=== PATIENT | male | born 1945 | race Caucasian/White ===

== ENCOUNTER 2021-10-02 08:39 | Outpatient (CLI) | payer OTHER, SELFPAY ==
--- NOTE | 2021-10-02 09:00 | CT_ITS ---
Final Report Patient: PETEY CASTANEDA Facility:?[facility] Patient ID:?[id number] Site Patient ID:?[id number]. Site :?[id number] Study:?CT Chest w/o Contrast-10/02/2021 9:01:50 AM Ordering Physician:Carlita Lucas Final Report: INDICATION: Pulmonary hypertension. TECHNIQUE: CT chest without contrast. COMPARISON: CT chest 07/06/2021. FINDINGS: Lungs and pleura: Centrilobular emphysema. Bilateral bronchial wall thickening. Improved mucous impaction in the bilateral lower lobes and left upper lobe. Calcified granuloma in the right lower lobe. 1.9 cm nodular density in the posterior left upper lobe decreased in size compared to CT 07/06/2021 (series 4, image 27) likely area of scarring. New 11 mm pulmonary nodule in the right upper lobe (Series 4, image 17). Heart and vasculature: Heart size is normal. Thoracic aorta and pulmonary artery are normal in caliber.Coronary and aortic atherosclerotic calcification. Lymph nodes/mediastinum: Enlarged mediastinal and hilar lymph nodes with calcified mediastinal and hilar lymph nodes similar to prior. Chest wall: No masses. Upper abdomen: No significant findings. Small hiatal hernia. Bones: Old nonunited left rib fractures. Vertebral plana deformity of the T6 vertebral body with compression fracture of the T5 vertebral body with slight increased height loss compared to 07/06/2021. IMPRESSION: 1. Severe centrilobular emphysema with bilateral bronchial wall thickening. Improved bilateral lower lobe and left upper lobe mucous impaction compared to prior exam. Nodular area in the left upper lobe improved compared to prior CT likely residual scarring. 2. New 12 mm pulmonary nodule in right upper lobe. Recommend short interval follow-up and/or PET-CT for further evaluation. 3. Extensive coronary and aortic atherosclerosis. 4. Enlarged mediastinal and hilar lymph nodes with calcified nodes likely due to prior granulomas disease although indeterminate. 5. Severe T5 and T6 compression fractures with interval height loss of T5 compared to prior exam. Please note that all CT scans at this facility use dose modulation, iterative reconstruction, and/or weight-based dosing when appropriate to reduce radiation dose to as low as reasonably achievable. Dictated by Yonny Pastor MD @ 10/02/2021 10:31:04 AM (Electronic Signature)
== END 2021-10-02 08:40 | disposition home or self-care (01) ==
LOC: CT 08:39
PROVIDERS: PCP Family Medicine; Visit Provider Internal Medicine Pulmonary Disease
DX: I27.20 Pulmonary hypertension, unspecified (principal); R91.1 Solitary pulmonary nodule; R59.9 Enlarged lymph nodes, unspecified; M48.54XA Collapsed vertebra, not elsewhere classified, thoracic region, initial encounter for fracture; J44.9 Chronic obstructive pulmonary disease, unspecified; J84.10 Pulmonary fibrosis, unspecified; R06.00 Dyspnea, unspecified; R09.02 Hypoxemia
CPT/HCPCS: 71250

== ENCOUNTER 2021-11-23 17:36 | Outpatient (CLI) | payer OTHER, SELFPAY | END 2021-11-23 17:37 | disposition home or self-care (01) | LOC: AMB 12-01 19:33 | PROVIDERS: PCP Family Medicine; Visit Provider Family Medicine | DX: R06.09 Other forms of dyspnea (principal) | CPT/HCPCS: A0425; A0427 ==

== ENCOUNTER 2021-11-23 18:09 | Emergency (ER) | payer OTHER, SELFPAY ==
[2021-11-23] VITALS (7 sets, daily range): BP systolic 126–143; BP diastolic 80–91; PULSE 80–89; RESP 18–43; TEMP 36.9; O2SAT 86–97; BMI 24.0
--- NOTE | 2021-11-23 18:53 | CRLHL7_ITS ---
For Patients: As a result of the Cures Act, medical imaging exams and procedure reports are released immediately into your electronic medical record. You may view this report before your referring provider. If you have questions, please contact your health care provider. Indication: Hypoxia Comparison: Single-view chest July 06, 2021 Technique: PA and lateral views of the chest Findings: There is hyperinflation and chronic interstitial change with diffusely increased interstitial markings which may represent pulmonary fibrotic changes with superimposed pulmonary edema. There is calcified granuloma seen in the visualized lung bases. There is no pneumothorax. The cardiac silhouette is enlarged with a tortuous thoracic aorta. The bony thorax is grossly intact. Impression: Hyperinflation and chronic interstitial changes with diffusely increased interstitial markings likely representing pulmonary fibrotic changes with mild pulmonary vascular congestion. Dictated by Hugh Hull MD @ 11/23/2021 8:08:09 PM (Electronically Signed)
--- NOTE | 2021-11-23 19:01 | ED_ITS ---
HPI - SOB/Dyspnea General Chief Complaint: Shortness of Breath/Dyspnea Stated Complaint: Short of Breath Time Seen by Provider: 11/23/21 18:33 Source: patient, family, EMS and RN notes reviewed Mode of arrival: EMS Limitations: no limitations History of Present Illness HPI Narrative: 76-year-old man presenting to the emergency department accompanied by his daughter with 30 hours of increasing shortness of air. Especially bad over the last hour. He does not describe chest pain. no abdominal pain. There has been no fever. No cough. Daughter notes that with history of pneumonias has not demonstrated these symptoms generally anyway. Underlying history of COPD, CHF with preserved ejection fraction and history of respiratory failure as well as pneumonia. Last admitted to this facility in July of this year. is normally on 3 L of nasal cannula at home this is CPAP at night. Today was just more and more short of breath with oximetry measuring in the 60s with any exertion. Increasing fatigue and weakness. Appears to be at his baseline weight now 172 lb since last admission when he had actually been all the way up at 203 lb. Is seeing a new glove brusher. Daughter notes that followup CT of the chest done in September of this year showed a new upper right lung spot and is pending a PET scan. This September CT showed improved chronic bronchitis. Mr. Gurrola after period of cessation, does continue to smoke. 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 he is vaccinated for COVID. did receive a DuoNeb from EMS. Has taken 3 of his own today. Apparently isn't using so much otherwise. Says that this level of oxygen receiving on arrival is definitely helping. There is a question as to whether not his home oxygen concentrator was malfunctioning; it is being replaced currently. Does have a young lady who lives in the basement having served as a PHYSICAL THERAPY PROFESSOR for his . Accompanied here today by Daughter Anh. The following is from the discharge summary in July Discharge Summary Admission Date and Time: Jul 06, 2021 at 08:43 Discharge Date: Jul 09, 2021 Admitting Physician: Harsh Lewis MD Attending Physician: Harsh Lewis MD; Joanna Whitt MD Primary Care Provider (PCP): Maribeth Avalos DO Discharge Diagnosis 1. Acute hypoxemic respiratory failure secondary to heart failure and COPD. 2. Acute on chronic heart failure with preserved ejection fraction. 3. COPD exacerbation. 4. Possible community-acquired pneumonia. 5. Hypertension. 6. Hyponatremia. 7. Obstructive sleep apnea. 8. Depression and anxiety. 9. Moderate to severe mitral regurgitation. 10. Tobacco dependence and abuse. 11. Chronic back pain. 12. Coronary artery disease. 13. 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 14. Question of atrial fibrillation, although I think this is unlikely. 15. Ascending aortic dilatation of 4.1 cm seen on echocardiogram. further surgeries include herniorrhaphy and bilateral cataract extraction lens reimplantation Related Data Home Medications Medication Instructions Recorded Confirmed albuterol sulfate 2.5 mg/3 mL mg 11/23/21 (0.083 %) solution for nebulization albuterol sulfate 90 mcg/actuation inhalation 11/23/21 aerosol inhaler atorvastatin 40 mg tablet mg 11/23/21 empagliflozin 10 mg tablet mg 11/23/21 (Jardiance) fluoxetine 20 mg capsule mg 11/23/21 fluticasone fur. 100 mcg-umeclid inhalation 11/23/21 62.5 mcg-vilant 25 mcg inhalat.powder (Trelegy Ellipta) furosemide 20 mg tablet mg 11/23/21 furosemide 40 mg tablet mg 11/23/21 losartan 25 mg tablet mg 11/23/21 nitroglycerin 0.4 mg sublingual mg 11/23/21 tablet tramadol 50 mg tablet mg 11/23/21 Allergies Allergy/AdvReac Type Severity Reaction Status Date / Time Penicillins Allergy Verified 11/23/21 18:25 Review of Systems Status of ROS: Reports: 10 or more systems reviewed and unremarkable except as noted in History and below [facility] Social History Smoking Status: Current every day smoker What tobacco products do you use: cigarettes Non-prescribed substance use: denies use Exam Narrative: Exam Narrative: Thin but not unwell appearing other than looks quite tired. Has oximask in place. Not completing full sentences. Moderately labored in his breathing. retracting at upper abdomen. Oropharynx is dry Head is atraumatic. I do not appreciate any JVD. Lungs are generally quite tight with wheeze. Diminished breath sounds generally. Cardiovascular is distant appears to be in regular rhythm and rate. Somewhat barrelled chest. abdomen is soft little tympanitic but nontender. Normoactive bowel sounds. Moving all extremities without difficulty. Is weak though that needs assistance to sit. well perfused peripherally. Has some bruising around his knuckles lower extremities with 1+ edema around his ankles. Const: Vital Signs, click to edit/add: Vital Signs - 24 hr 11/23/21 18:28 11/23/21 18:52 11/23/21 20:00 Temperature 98.5 F Pulse Rate [Right Pulse Oximeter] 86 84 Respiratory Rate 18 27 H 28 H Blood Pressure [Ri ght Upper Arm] 143/88 H 132/84 Pulse Oximetry 96 90 86 L Oxygen Delivery Me thod Room Air Nasal Cannula Nasal Cannula Oxygen Flow Rate 3 3 11/23/21 20:30 11/23/21 21:00 11/23/21 21:30 Temperature Pulse Rate [Right Pulse Oximeter] 89 80 84 Respiratory Rate 21 30 H 43 H Blood Pressure [Ri ght Upper Arm] 142/91 H 126/89 129/87 Pulse Oximetry 89 92 97 Oxygen Delivery Me thod Nasal Cannula Nasal Cannula Nasal Cannula Oxygen Flow Rate 3 5 5 11/23/21 22:00 Temperature Pulse Rate [Right Pulse Oximeter] 82 Respiratory Rate 26 H Blood Pressure [Ri ght Upper Arm] 134/80 Pulse Oximetry 92 Oxygen Delivery Me thod Nasal Cannula Oxygen Flow Rate 7 Documenting provider has reviewed patient's vital signs: yes Course Course Hospital Course: Ordered for Solu-Medrol. and albuterol neb. Continued on OxyMask. Labs pending Reevaluation(s) Reevaluation #1: improved but still desaturates rapidly with even just sitting up in bed. Remains tachypneic and labored. Vital Signs Vital signs: Initial Vital Signs Temperature 98.5 F 11/23/21 18:28 Temperature Source Temporal Artery Scan 11/23/21 18:28 Pulse Rate 86 11/23/21 18:28 Respiratory Rate 18 11/23/21 18:28 Blood Pressure 143/88 H 11/23/21 18:28 Blood Pressure Mean 106 11/23/21 18:28 Blood Pressure Position Supine 11/23/21 18:28 Pulse Oximetry 96 11/23/21 18:28 Oxygen Delivery Method 11/23/21 18:28 Vital Signs Temperature 98.5 F 11/23/21 18:28 Pulse Rate 86 11/23/21 18:28 Respiratory Rate 18 11/23/21 18:28 Blood Pressure 143/88 H 08/19/22 18:28 Pulse Oximetry 96 11/23/21 18:28 Oxygen Delivery Method 11/23/21 18:28 Temperature 98.5 F 11/23/21 18:28 Pulse Rate 82 11/23/21 22:00 Respiratory Rate 26 H 11/23/21 22:00 Blood Pressure 134/80 11/23/21 22:00 Pulse Oximetry 92 11/23/21 22:00 Oxygen Delivery Method 11/23/21 22:00 Oxygen Flow Rate 7 11/23/21 22:00 MDM - SOB/Dyspnea MDM Narrative Medical decision making narrative: Chest x-ray without evidence of pneumonia by my read. Fibrotic changes prominent. mild pulmonary edema. initial VBGs with pH of 7.39 CO2 49 Initial albuterol nebulization may have helped somewhat. Wondering if there may be some mucus plugging contributing. Will repeat albuterol neb and transition to humidified oxygen /bubbler. white count is normal. Last admission was over 17,000. mildly hyponatremic at 131 -consistent with history not convinced this is a CHF exacerbation in part as weights have been stable. D-dimer elevated at 2.9 though in the setting of a CRP of 3.1 We have no beds in this facility. Given weakness and continued desaturation with minor activity will be looking for hospitalization elsewhere. returning to imaging for IV contrasted CT of the chest. IMPRESSION: 1. No evidence of pulmonary embolism. 2. Severe emphysema. Patchy bilateral lower lobe opacities, right greater than left suggests pneumonia. 3. A midsternum fracture is new from 10/02/2021, and age indeterminate. 4. Unchanged enlarged mediastinal lymph nodes, nonspecific. Given Rocephin and azithromycin for potential pneumonia Thankfully able to find a bed with [facility]. Dr. Tuttle accepting. Medical Records Attestation: I reviewed the patient's medical records. Lab Data Attestation: I reviewed the patient's lab results. Labs: Lab Results 11/23/21 11/23/21 11/23/21 Range/Units 18:53 18:53 18:53 WBC 9.74 (4.50-11.00) K/uL RBC 4.38 (4.30-5.90) m/uL Hgb 13.9 (13.5-17.5) gm/dL Hct 41.3 (37.0-53.0) % MCV 94 (80-100) fL MCH 32 (26-34) pg MCHC 34 (32-36) gm/dL RDW Coeff of [place] 14.0 (11.5-15.5) % Plt Count 221 (140-440) K/uL Neut % (Auto) 80.3 H (42.0-72.0) % Lymph % (Auto) 8.9 L (20-44) % [place] % (Auto) 9.2 (0.0-11.0) % Eos % (Auto) 0.4 (0.0-7.0) % Baso % (Auto) 1.0 (0.0-3.0) % Neut # (Auto) 7.80 H (1.7-7.0) K/uL Lymph # (Auto) 0.90 (0.90-2.90) K/uL [place] # (Auto) 0.90 (0.00-0.90) K/UL Eos # (Auto) 0.04 (0.00-0.50) K/uL Baso # (Auto) 0.10 (0.00-0.30) K/uL Abs Immat Gran (auto) 0.02 (0.00-0.30) K/uL D-Dimer Quant (PE/DVT) 2.90 H (0.00-0.50) ug/ml VBG pH (7.32-7.43) VBG pCO2 (40-50) mmHG VBG pO2 (25-47) mmHG VBG HCO3 (21-28) mmol/L Sodium 131 L (135-149) mmol/L Potassium 4.4 (3.6-5.1) mmol/L Chloride 96 (96-114) mmol/L Carbon Dioxide 29 (20-32) mmol/L BUN 17 (7-30) mg/dL Creatinine 0.6 (0.5-1.5) mg/dL Estimated Creat Clear 67.98 Estimated GFR 101 ml/min Glucose 110 (60-115) mg/dL Lactate (0.5-1.9) mmol/L Venous Lactic Acid (Serial Order) Calcium 8.7 (8.4-10.6) mg/dL Troponin I < 0.01 L (0.01-0.04) ng/mL C-Reactive Protein 3.1 H (0.5-1.0) mg/dL NT-Pro-B Natriuret Pep 3200 H (0-450) PG/mL SARS-CoV-2 (PCR) (Negative) POC Troponin I (0.01-0.04) ng/ml 11/23/21 11/23/21 11/23/21 Range/Units 18:53 18:53 18:53 WBC (4.50-11.00) K/uL RBC (4.30-5.90) m/uL Hgb (13.5-17.5) gm/dL Hct (37.0-53.0) % MCV (80-100) fL MCH (26-34) pg MCHC (32-36) gm/dL RDW Coeff of Tyler (11.5-15.5) % Plt Count (140-440) K/uL Neut % (Auto) (42.0-72.0) % Lymph % (Auto) (20-44) % [place] % (Auto) (0.0-11.0) % Eos % (Auto) (0.0-7.0) % Baso % (Auto) (0.0-3.0) % Neut # (Auto) (1.7-7.0) K/uL Lymph # (Auto) (0.90-2.90) K/uL [place] # (Auto) (0.00-0.90) K/UL Eos # (Auto) (0.00-0.50) K/uL Baso # (Auto) (0.00-0.30) K/uL Abs Immat Gran (auto) (0.00-0.30) K/uL D-Dimer Quant (PE/DVT) (0.00-0.50) ug/ml VBG pH 7.387 (7.32-7.43) VBG pCO2 49 (40-50) mmHG VBG pO2 60.6 H (25-47) mmHG VBG HCO3 29 H (21-28) mmol/L Sodium (135-149) mmol/L Potassium (3.6-5.1) mmol/L Chloride (96-114) mmol/L Carbon Dioxide (20-32) mmol/L BUN (7-30) mg/dL Creatinine (0.5-1.5) mg/dL Estimated Creat Clear Estimated GFR ml/min Glucose (60-115) mg/dL Lactate 1.4 (0.5-1.9) mmol/L Venous Lactic Acid (Serial Order) Cancelled Calcium (8.4-10.6) mg/dL Troponin I (0.01-0.04) ng/mL C-Reactive Protein (0.5-1.0) mg/dL NT-Pro-B Natriuret Pep (0-450) PG/mL SARS-CoV-2 (PCR) (Negative) POC Troponin I (0.01-0.04) ng/ml 11/23/21 11/23/21 Range/Units 18:57 19:26 WBC (4.50-11.00) K/uL RBC (4.30-5.90) m/uL Hgb (13.5-17.5) gm/dL Hct (37.0-53.0) % MCV (80-100) fL MCH (26-34) pg MCHC (32-36) gm/dL RDW Coeff of [place] (11.5-15.5) % Plt Count (140-440) K/uL Neut % (Auto) (42.0-72.0) % Lymph % (Auto) (20-44) % [place] % (Auto) (0.0-11.0) % Eos % (Auto) (0.0-7.0) % Baso % (Auto) (0.0-3.0) % Neut # (Auto) (1.7-7.0) K/uL Lymph # (Auto) (0.90-2.90) K/uL [place] # (Auto) (0.00-0.90) K/UL Eos # (Auto) (0.00-0.50) K/uL Baso # (Auto) (0.00-0.30) K/uL Abs Immat Gran (auto) (0.00-0.30) K/uL D-Dimer Quant (PE/DVT) (0.00-0.50) ug/ml VBG pH (7.32-7.43) VBG pCO2 (40-50) mmHG VBG pO2 (25-47) mmHG VBG HCO3 (21-28) mmol/L Sodium (135-149) mmol/L Potassium (3.6-5.1) mmol/L Chloride (96-114) mmol/L Carbon Dioxide (20-32) mmol/L BUN (7-30) mg/dL Creatinine (0.5-1.5) mg/dL Estimated Creat Clear Estimated GFR ml/min Glucose (60-115) mg/dL Lactate (0.5-1.9) mmol/L Venous Lactic Acid (Serial Order) Calcium (8.4-10.6) mg/dL Troponin I (0.01-0.04) ng/mL C-Reactive Protein (0.5-1.0) mg/dL NT-Pro-B Natriuret Pep (0-450) PG/mL SARS-CoV-2 (PCR) Negative SARS-CoV-2 (Negative) POC Troponin I 0.01 (0.01-0.04) ng/ml ECG Data Attestation: I personally reviewed and interpreted this ECG as follows: ( sinus at rate of 85. No ST elevation or depression. No Q-waves. Similar to prior) Discharge Plan Discharge Clinical Impression: Respiratory failure, COPD exacerbation, Pneumonia Patient Disposition: [facility] Discharge Location: [facility]
[2021-11-23 19:27] LABS: HCO3 VBG 29 mmol/L (21-28); PCO2 VBG 49 mmHG (40-50); PO2 VBG 60.6 mmHG (25-47); pH VBG 7.387 (7.32-7.43)
[2021-11-23 19:32] LABS: Troponin, Point-of-Care* 0.01 ng/ml (0.01-0.04)
--- NOTE | 2021-11-23 19:33 | PC.NURSE ---
Per Dr. Meek, goal O2 90%. Patient is currently on 3L NC satting 93% which is patient's baseline.
[2021-11-23 19:43] LABS: Chloride* 96 mmol/L (96-114); Potassium* 4.4 mmol/L (3.6-5.1); Sodium* 131 mmol/L (135-149)
[2021-11-23] MEDS: ALBUTEROL SULFATE 2.5 MG/3 ML VIAL.NEB NEB ×2 (19:44→21:01)
[2021-11-23] MEDS: METHYLPREDNISOLONE SOD SUCC 62.5 MG/ML (125) 93.75 MG IVP (19:44)
[2021-11-23 19:46] LABS: Creatinine* 0.6 mg/dL (0.5-1.5); Est. Creatinine Clearance* 67.98; Estimated Glomerular Filt Rate 101 ml/min
[2021-11-23 19:47] LABS: Blood Urea Nitrogen* 17 mg/dL (7-30); Calcium* 8.7 mg/dL (8.4-10.6); Carbon Dioxide* 29 mmol/L (20-32); Glucose* 110 mg/dL (60-115)
[2021-11-23 19:50] LABS: C Reactive Protein* 3.1 mg/dL (0.5-1.0)
[2021-11-23 19:59] LABS: Troponin I* < 0.01 ng/mL (0.01-0.04)
[2021-11-23 20:18] LABS: SARS PCR* Negative SARS-CoV-2 (Negative)
[2021-11-23 20:22] LABS: Eosinophils Absolute Auto 0.04 K/uL (0.00-0.50); Eosinophils Percent Auto 0.4 % (0.0-7.0); Hematocrit 41.3 % (37.0-53.0); Hemoglobin* 13.9 gm/dL (13.5-17.5); Immature Granulocytes Abs Auto 0.02 K/uL (0.00-0.30); Lymphocytes Percent Auto 8.9 % (20-44); Mean Corpuscular HGB Conc 34 gm/dL (32-36); Mean Corpuscular Hemoglobin 32 pg (26-34); Mean Corpuscular Volume 94 fL (80-100); Monocytes Percent Auto 9.2 % (0.0-11.0); Neutrophils Percent Auto 80.3 % (42.0-72.0); Platelet Count* 221 K/uL (140-440); Red Blood Count 4.38 m/uL (4.30-5.90); Slide Review Reflex No; White Blood Count* 9.74 K/uL (4.50-11.00)
--- NOTE | 2021-11-23 20:45 | PC.NURSE ---
Patient used urinal in bed and shifted self up in bed with web content writer present. At this time, patient began to de-sat into the 70's%. O2 titrated up to 5L NC, patient recovered to satting 90%. Dr. Meek notified.
--- NOTE | 2021-11-23 20:47 | CT_ITS ---
Patient: PETEY CASTANEDA Facility:?[facility] Patient ID:?[id number] Site Patient ID:?[id number]. Site :?[id number] Study:?CT-Chest W/95CC ISOVUE 370 PE PROTOCOL-11/23/2021 9:28:55 PM Ordering Physician:Gonzalo Sidhu Final Report: INDICATION: Hypoxia. Elevated D-dimer TECHNIQUE: CT chest pulmonary angiogram acquired with IV contrast. COMPARISON: CT 10/02/2021 FINDINGS: Cardiovascular structures: Normal vascular enhancement of the pulmonary arteries, no sign of pulmonary embolism. Heart size is normal. No sign of aneurysm or dissection in the thoracic aorta. Marked coronary artery calcifications. Mediastinum and isabel: Prominent mediastinal lymph nodes are similar to prior, for example precarinal lymph measuring 2.0 cm. Lungs: Extensive emphysema. Patchy bilateral lower lobe opacities, right greater than left. Stable 9 mm right upper lobe pulmonary nodule on series 5, image 39, and left upper lobe 2 cm spiculated nodule on image 59 which likely represent scarring. Unchanged calcified right upper lobe nodule. No pleural effusions. Chest wall and axilla: No mass or adenopathy. Bones: Unchanged severe compression deformities at T5 and T6. Mildly displaced sternal fracture is new. Upper abdomen: Unremarkable. IMPRESSION: 1. No evidence of pulmonary embolism. 2. Severe emphysema. Patchy bilateral lower lobe opacities, right greater than left suggests pneumonia. 3. A midsternum fracture is new from 10/02/2021, and age indeterminate. 4. Unchanged enlarged mediastinal lymph nodes, nonspecific. Please note that all CT scans at this facility use dose modulation, iterative reconstruction, and/or weight-based dosing when appropriate to reduce radiation dose to as low as reasonably achievable. Dictated by Denny Light MD @ 11/23/2021 10:01:07 PM Signed by:?Denny Light MD @11/23/2021 10:01:07 PM (Electronic Signature)
[2021-11-23 22:31] LABS: Lactate* 1.4 mmol/L (0.5-1.9)
--- NOTE | 2021-11-23 22:35 | PC.NURSE ---
Report to ROCÍO Kenny at [facility]. Will call for EMS transport.
[2021-11-23 22:39] LABS: NT Pro B Type NatriureticPept* 3200 PG/mL (0-450)
[2021-11-23] MEDS: AZITHROMYCIN 250 MG TABLET 500 MG PO (22:51)
[2021-11-23] MEDS: cefTRIAXone 1 GM in 0.9 % SODIUM CHLORIDE Mini-bag 100 ML IVPB (22:51)
--- NOTE | 2021-11-23 22:57 | PC.NURSE ---
Report to EMS. Patient to transport up to [facility] 2W room 220
== END 2021-11-23 23:00 | disposition short-term general hospital (02) ==
PROVIDERS: Emergency Provider Family Medicine; PCP Family Medicine
DX: J96.90 Respiratory failure, unspecified, unspecified whether with hypoxia or hypercapnia (principal); J44.1 Chronic obstructive pulmonary disease with (acute) exacerbation; J18.9 Pneumonia, unspecified organism
CPT/HCPCS: 36415; 71046; 71260; 80048; 82803; 83605; 83880; 84484; 85025; 85379; 86140; 87040; 87635; 93005; 94640; 96374; 96375; 99284; A9270; J0696; J2930; Q9967

== ENCOUNTER 2021-11-23 22:55 | Outpatient (CLI) | payer OTHER, SELFPAY | END 2021-11-23 22:56 | disposition home or self-care (01) | LOC: AMB 12-01 19:36 | PROVIDERS: PCP Family Medicine; Visit Provider Family Medicine | DX: J44.1 Chronic obstructive pulmonary disease with (acute) exacerbation (principal); R06.09 Other forms of dyspnea | CPT/HCPCS: A0425; A0428 ==

== ENCOUNTER 2021-12-06 12:38 | Outpatient (CLI) | payer OTHER, SELFPAY ==
--- NOTE | 2021-12-06 17:00 | CRLHL7_ITS ---
For Patients: As a result of the 21st Century Cures Act, medical imaging exams and procedure reports are released immediately into your electronic medical record. You may view this report before your referring provider. If you have questions, please contact your health care provider. INDICATION: 76 year-old male. Right upper lobe pulmonary nodule. Former smoker. TECHNIQUE: 12.63 mCi 18 FDG (18 [id number]-rr-mtl-glucose) injected intravenously. Imaging performed from the mid forehead to the proximal thighs [address] performed for anatomic correlation and attenuation correction. Pre scan glucose: 85 mg/dL. COMPARISON: Correlation is made with a chest CT November 23, 2021, October 02, 2021, and July 06, 2021. FINDINGS: Physiologic activity is identified in the brain, salivary glands, tongue, paralaryngeal soft tissues, myocardium, GI, and tract. The included intracranial structures, included soft tissues of the head, face, and neck are within normal limits. No evidence for metabolically active cervical lymphadenopathy. No abnormal activity within the thyroid gland. The previous identified 12 mm pulmonary nodule within the right lung apex on CT November 23, 2021 and October 02, 2021 is now smaller, measuring between 6 and 7 mm and is now cavitary. The measured SUV max is 1.3. Given the interval change in terms of its CT appearance, this could be postinfectious or postinflammatory in nature. Within the lingular left upper lobe there is a curvilinear focus of increased metabolic activity with an SUV max of 3.1. Ground-glass focus superior medial right lower lobe of the lung, SUV max 2.8. Patchy somewhat ground-glass infiltrate at the extreme right lung base posteriorly SUV max 4.3 and minimal ground-glass nodular infiltrate within the subpleural left lower lobe of the lung SUV max 2.3. Low intermediate level activity associated with a mildly prominent low right paratracheal lymph node SUV max 2.9 and a small left subcarinal lymph node, SUV max 2.7. No metabolically active hilar lymph nodes. The abdomen and pelvis are within normal limits. No abnormal activity within solid abdominal organs or lymph node groups. Both inguinal regions and soft tissues of the included thighs are within normal limits. Within the included skeleton there is focal increased uptake within the mid sternal body compatible with a fracture deformity with an SUV max of 5.8. This sternal body fracture is new when correlated with the CT October 02, 2021 but in retrospect was present on the most recent CT November 23, 2021, sagittal reconstructed image 158 series 7. There is also marked compression fracture of T5 and T6 without increased metabolic activity likely indicating chronic compression fracture deformities. There is intermediate level activity associated with a partial compression fracture of L2 which may indicate a subacute compression fracture. Compression fracture superior endplate of L3 without increased activity. There is scattered degenerative-type activity within the cervical thoracic and lumbosacral spine. Megan scapular muscular type activity. Muscular type activity along the chest ken. No evidence for occult malignancy or metastatic skeletal disease. CT Findings: Sternal body fracture. Chronic compression fracture deformities T5, T6, as well as compression fracture deformities of L2 and L3. Emphysematous type change to the lungs. Scattered fibrosis. Granulomatous change right hemithorax with a calcified granuloma at the right lung base and calcified right hilar/mediastinal lymph nodes. 7 mm cavitary nodule near the right lung apex. Curvilinear focus lingular left upper lobe of the lung. Bibasilar infiltrates right greater than left. Cardiac enlargement. Coronary artery calcification and/or coronary artery stents. Calcified splenic granuloma. Small esophageal hiatal hernia. No hydronephrosis. Dense vascular calcification within the abdominal aorta and iliac arteries which are tortuous and mildly ectatic. Large amount of stool in the colon compatible with constipation. Large amount of stool within the rectosigmoid colon. Please correlate with regards to any history of fecal impaction. IMPRESSION : 1. Very low level activity associated with a small cavitary nodule at the right lung apex. This is smaller when correlated with prior chest CTs and demonstrates very low level activity SUV max 1.3. This is more likely postinfectious or postinflammatory. This can be followed by routine interval surveillance chest CTs. 2. Low to intermediate level metabolic activity associate with a curvilinear focus within the lingular left upper lobe, ground-glass opacity superior right lower lobe, with intermediate to slightly higher level activity within bibasilar infiltrates right greater than left. Postinfectious or postinflammatory type processes are considered most likely. Again this can be followed with routine interval surveillance chest CTs as well as clinical correlation regarding any history of recent pneumonia. 3. Metabolically active fracture deformity mid sternal body SUV max 5.8, likely relatively acute as this is new when correlated with the CT October 02, 2021. 4. Mildly metabolically active partial compression fracture of L2 may indicate a subacute fracture deformity. Dictated by Lamine Omalley MD @ 12/07/2021 9:43:46 AM (Electronically Signed)
== END 2021-12-06 12:39 | disposition home or self-care (01) ==
PROVIDERS: PCP Family Medicine; Visit Provider Internal Medicine Pulmonary Disease
DX: R91.1 Solitary pulmonary nodule (principal); R59.0 Localized enlarged lymph nodes; Z87.891 Personal history of nicotine dependence; M48.54XA Collapsed vertebra, not elsewhere classified, thoracic region, initial encounter for fracture; M48.56XA Collapsed vertebra, not elsewhere classified, lumbar region, initial encounter for fracture
CPT/HCPCS: 78815; A9552

== ENCOUNTER 2022-01-10 10:34 | Outpatient (CLI) | payer OTHER, SELFPAY ==
--- NOTE | 2022-01-10 11:00 | CRLHL7_ITS ---
For Patients: As a result of the Cures Act, medical imaging exams and procedure reports are released immediately into your electronic medical record. You may view this report before your referring provider. If you have questions, please contact your health care provider. Indication: Follow-up Technique: Noncontrast CT chest Comparison: CT11/23/2021 Findings: Mildly enlarged aneurysmal dilatation ascending thoracic aorta measuring 4.2 cm. Heart is enlarged and coronary artery calcifications. Calcified hilar lymph nodes. Mildly enlarged precarinal lymph node measuring 1.8 centimeters short axis series 2, image 47 changed their gynecomastia. No pericardial effusion. Severe emphysema. Apical fibrotic change 6 millimeter cavitary right apical nodule now decreasing in size series 3, image 19. This is decreased from 11/23/2021. 1.4 centimeter irregular left upper lobe nodule slightly decreased series 3, image 26 on the prior study subpleural reticular opacities most likely reflecting fibrosis there is no new nodule seen. right lower lobe granuloma. Bibasilar patchy consolidation not significantly changed. Midsternal fracture again seen without significant seen unchanged thoracic kyphosis with severe T5-T6 compression fracture is unchanged Impression: 1. Small right apical wall 6 millimeter spiculated cavitary lesion decreased in size from November 2021. 1.4 centimeter irregular nodule left upper lobe slightly decreased in size. Findings are favored to represent infectious or inflammatory processes to be conservative continued follow-up is recommended. 2. Severe emphysema with bibasilar patchy opacities probably reflecting pneumonia. 3. Sternal fracture. Please note that all CT scans at this facility use dose modulation, iterative reconstruction, and/or weight-based dosing when appropriate to reduce radiation dose to as low as reasonably achievable. Dictated by Ashley Kaiser MD @ 01/10/2022 6:40:49 PM (Electronically Signed)
== END 2022-01-10 10:35 | disposition home or self-care (01) ==
LOC: CT 10:35
PROVIDERS: PCP Family Medicine; Visit Provider Internal Medicine Pulmonary Disease
DX: J18.9 Pneumonia, unspecified organism (principal); R91.8 Other nonspecific abnormal finding of lung field; I71.21 Aneurysm of the ascending aorta, without rupture; J43.9 Emphysema, unspecified; S22.22XA Fracture of body of sternum, initial encounter for closed fracture
CPT/HCPCS: 71250

== ENCOUNTER 2022-02-08 13:00 | Outpatient (RCR) | payer OTHER, SELFPAY | END 2023-02-04 15:14 | disposition home or self-care (01) | LOC: LAB 13:00 | PROVIDERS: PCP Family Medicine; Visit Provider Internal Medicine Pulmonary Disease | DX: J41.1 Mucopurulent chronic bronchitis (principal); J84.10 Pulmonary fibrosis, unspecified | CPT/HCPCS: 87015; 87070; 87116 ==

== ENCOUNTER 2022-03-25 13:55 | Outpatient (CLI) | payer OTHER, SELFPAY ==
--- NOTE | 2022-03-25 14:00 | CRLHL7_ITS ---
For Patients: As a result of the Century Cures Act, medical imaging exams and procedure reports are released immediately into your electronic medical record. You may view this report before your referring provider. If you have questions, please contact your health care provider. Indication: after antibiotics comparison for lung nodules Technique: Noncontrast CT chest Please note that all CT scans at this facility use dose modulation, iterative reconstruction, and/or weight-based dosing when appropriate to reduce radiation dose to as low as reasonably achievable. Comparison: CT PET 12/06/2021, CT 01/10/2022 Findings: Severe COPD/emphysema. Right upper lobe nodule again noted measuring 6 millimeters, 06/24. Curvilinear nodule in the left upper lobe measures 1.4 cm, unchanged, 07/04. patchy areas of scarring and bronchiectasis. Sequela of granulomatous disease with calcified right lower lobe nodule and calcified right hilar lymph nodes. Dense vascular calcifications. No acute infiltrate. No pneumothorax. Stable prominent precarinal lymph node. Cardiomegaly. No hydronephrosis. Kyphotic deformity with severe compression of 2 upper thoracic vertebral bodies. Compression in the upper lumbar spine also similar. Some healing across the sternal fracture noted. Old left-sided rib fractures. Impression: Nodule in the right lung apex is similar in size with loss of the cavitation since the prior exam. Continued follow-up in 3 months recommended. Stable curvilinear nodular density in the left upper lobe likely representing scar tissue. Chronic COPD/emphysema with fibrotic change. Similar osseous structures with severe compression of 2 of the upper thoracic vertebral bodies, a compression deformity in the upper lumbar spine and old left-sided rib fractures along with a partially healed sternal fracture. Similar enlarged precarinal lymph node. Please note that all CT scans at this facility use dose modulation, iterative reconstruction, and/or weight-based dosing when appropriate to reduce radiation dose to as low as reasonably achievable. Dictated by Nahum Hankins MD @ 03/25/2022 3:43:32 PM (Electronically Signed)
== END 2022-03-25 13:56 | disposition home or self-care (01) ==
LOC: CT 13:55
PROVIDERS: PCP Family Medicine; Visit Provider Internal Medicine Pulmonary Disease
DX: R91.8 Other nonspecific abnormal finding of lung field (principal); J41.1 Mucopurulent chronic bronchitis; J84.10 Pulmonary fibrosis, unspecified; J43.9 Emphysema, unspecified; R59.9 Enlarged lymph nodes, unspecified
CPT/HCPCS: 71250

== ENCOUNTER 2022-06-20 09:52 | Outpatient (CLI) | payer OTHER, SELFPAY ==
--- NOTE | 2022-06-20 10:00 | CRLHL7_ITS ---
For Patients: As a result of the Cures Act, medical imaging exams and procedure reports are released immediately into your electronic medical record. You may view this report before your referring provider. If you have questions, please contact your health care provider. Indication: Fibrous changes, COPD, smoker Technique: Noncontrast CT chest Please note that all CT scans at this facility use dose modulation, iterative reconstruction, and/or weight-based dosing when appropriate to reduce radiation dose to as low as reasonably achievable. Comparison: 03/25/2022, 01/10/2022 Findings: Similar lobular pulmonary nodule in the right lung apex measuring 6 millimeters. Stable linear density in the left upper lobe measuring 1.4 cm. Underlying COPD/emphysema/pulmonary fibrosis again noted. Sequela of granulomatous disease with calcified mediastinal and right hilar lymph nodes and calcified granuloma in the right lower lobe. Cardiomegaly. Extensive atherosclerotic disease. Secretions within the midesophagus unchanged. Similar size of the precarinal lymph node measuring 2.1 cm. Severe compression deformities in mid thoracic spine are stable as is the mild compression deformity at the thoracolumbar junction. Chronic fracture of the sternum. Calcified granuloma in the spleen. Impression: Stable exam. Unchanged right upper lobe and left upper lobe nodules. Stable COPD/emphysema/pulmonary fibrosis. Stable prominent precarinal lymph node. Please note that all CT scans at this facility use dose modulation, iterative reconstruction, and/or weight-based dosing when appropriate to reduce radiation dose to as low as reasonably achievable. Dictated by Nahum Hankins MD @ 06/23/2022 8:47:25 AM (Electronically Signed)
== END 2022-06-20 09:53 | disposition home or self-care (01) ==
PROVIDERS: PCP Family Medicine; Visit Provider Internal Medicine Pulmonary Disease
DX: J44.9 Chronic obstructive pulmonary disease, unspecified (principal); R91.8 Other nonspecific abnormal finding of lung field
CPT/HCPCS: 71250

== ENCOUNTER 2022-12-31 12:48 | Outpatient (CLI) | payer OTHER, SELFPAY ==
--- NOTE | 2022-12-31 13:00 | CRLHL7_ITS ---
For Patients: As a result of the Century Cures Act, medical imaging exams and procedure reports are released immediately into your electronic medical record. You may view this report before your referring provider. If you have questions, please contact your health care provider. Indication: nodules, precarinal adenopathy Technique: Noncontrast CT chest. Please note that all CT scans at this facility use dose modulation, iterative reconstruction, and/or weight-based dosing when appropriate to reduce radiation dose to as low as reasonably achievable. Comparison: 06/20/2022 Findings: Stable nodular density within the left upper lobe, series 3, image 29 and stable nodular density within the right lung apex, series 3, image 23. Emphysema. No pleural effusion. Thickened interlobular septa with bronchiectasis/honeycombing bilaterally there is similar. Stable enlarged precarinal lymph node. Calcified subcarinal and right hilar lymph nodes. Calcified granuloma right lower lobe. Vascular calcifications. Cardiomegaly. Chronic fracture deformities thoracic spine and sternum Impression: No significant interval change in bilateral upper lobe nodules and bilateral areas of pulmonary fibrosis. Stable precarinal lymph node. Please note that all CT scans at this facility use dose modulation, iterative reconstruction, and/or weight-based dosing when appropriate to reduce radiation dose to as low as reasonably achievable. Dictated by Nahum Hankins MD @ 01/01/2023 12:20:27 PM (Electronically Signed)
== END 2022-12-31 12:49 | disposition home or self-care (01) ==
LOC: CT 12:49
PROVIDERS: PCP Family Medicine; Visit Provider Internal Medicine Pulmonary Disease
DX: R91.8 Other nonspecific abnormal finding of lung field (principal)
CPT/HCPCS: 71250

== ENCOUNTER 2023-04-16 10:44 | Emergency (ER) | payer OTHER, SELFPAY ==
[2023-04-16] VITALS (14 sets, daily range): BP systolic 104–105; BP diastolic 69–74; PULSE 71–95; RESP 26; TEMP 36.6; O2SAT 80–92; BMI 21.5
--- NOTE | 2023-04-16 11:22 | CRLHL7_ITS ---
For Patients: As a result of the Century Cures Act, medical imaging exams and procedure reports are released immediately into your electronic medical record. You may view this report before your referring provider. If you have questions, please contact your health care provider. INDICATION: Back pain COMPARISON: CT chest 12/31/2022 TECHNIQUE: CT of the thoracic spine. Images were reformatted from the same day CT angiogram of the chest. Multiplanar axial, coronal, and sagittal reformats were reconstructed. FINDINGS: Severe T5 and T6 compression fractures. Moderate T8 compression fracture. Moderate L2 compression fracture. Moderate to severe L3 compression fracture. Multilevel advanced disc degenerative change. Heavy atherosclerotic vascular calcifications. Mixed emphysema and fibrotic lung disease unchanged. IMPRESSION: The moderate T8 compression fracture is new compared to prior. There is about 30 percent loss of height. Please note that all CT scans at this facility use dose modulation, iterative reconstruction, and/or weight-based dosing when appropriate to reduce radiation dose to as low as reasonably achievable. Dictated by Jeanette Samuel MD @ 04/16/2023 1:58:34 PM (Electronically Signed)
--- NOTE | 2023-04-16 11:23 | CRLHL7_ITS ---
For Patients: As a result of the Century Cures Act, medical imaging exams and procedure reports are released immediately into your electronic medical record. You may view this report before your referring provider. If you have questions, please contact your health care provider. INDICATION: Check ascending aortic aneurysm COMPARISON: 12/31/2022, 06/20/2022, 03/25/2022. TECHNIQUE: CT angiogram chest with contrast, aortic protocol. Multiplanar axial, coronal, and sagittal reformats are included. MIP images to improve detection of aortic pathology. Intravenous contrast: 75 ml Isovue 370 FINDINGS: Aorta: Nongated exam. Well-timed contrast bolus. Ascending aorta: 3.8 cm Aortic Arch: 3.3 cm Descending thoracic aorta, proximal: 2.9 cm Descending aorta, distal: 2.5 cm Abdominal aorta, upper: 2.4 cm Abdominal aorta, infrarenal: 2.3 cm No intramural hematoma. Heavy atherosclerotic plaques. No penetrating atherosclerotic ulcers. No aortic dissection. Heavy coronary artery calcifications. Normal arch great vessels. The included major branches in the upper abdomen are pain despite heavy atherosclerotic calcifications at their origins. Incidentally noted independent origin of the right gastric artery from the aorta. Heart: No pericardial effusion. Normal cardiac chamber size. Lungs: Inspiratory phase imaging. Densely calcified granuloma right lower lobe. Basilar predominant interlobular septal thickening and honeycombing in a similar distribution compared to prior.. Moderate to severe emphysema Pleura: No pleural effusion. No pneumothorax. Airway: Normal tracheobronchial tree. Lymph nodes: No thoracic adenopathy. Mediastinum: No pneumomediastinum. Bones: Chronic depressed mid sternal fracture. Severe T5 and T6 compression fractures. Moderate T8 compression fracture. Moderate L2 and moderate to severe L3 compression fractures. Multiple healing left rib fractures. Pattern and distribution is similar compared to the previous exam. Chest wall: Mild gynecomastia there is bilaterally symmetric. No masses. Upper abdomen: Mildly dilated extrahepatic bile duct. Course periportal calcifications.. IMPRESSION: 1. Mildly dilated ascending aorta measuring 3.8 cm. No definite change compared to previous noncontrast exams. No acute aortic syndrome. 2. Severe pulmonary emphysema with basilar fibrosis in a similar pattern compared to the previous exam. 3. Unchanged or healing sternal, vertebral body, and rib fractures. No new fracture seen Please note that all CT scans at this facility use dose modulation, iterative reconstruction, and/or weight-based dosing when appropriate to reduce radiation dose to as low as reasonably achievable. Dictated by Jeanette Samuel MD @ 04/16/2023 1:55:18 PM (Electronically Signed)
--- NOTE | 2023-04-16 11:26 | ED.GENADULT ---
HPI - General Adult General Chief complaint: Back Injury/Pain Stated complaint: Upper back pain Time Seen by Provider: 04/16/23 10:56 History of Present Illness HPI narrative: 78 year white male with significant COPD on home oxygen continuously, presents with midthoracic back pain between his shoulder blades over the last week. It has been worsening. He is able to find some comfortable position when he lays down, there is no tearing or ripping sensation. He does have an ascending aortic aneurysm. His lung function has been poor he reports. He has tried gabapentin, tramadol without success. Continues to have significant back pain. His daughter stays with him. He lives independently. Daughter reports the patient does have a history of cervical compression fractures. Patient has a history of hypoxemic respiratory failure secondary to COPD, congestive heart failure, cervical compression fractures per his daughter, coronary artery disease, ischemic cardiomyopathy. Related Data Home Medications Medication Instructions Recorded Confirmed albuterol sulfate 2.5 mg/3 mL mg 11/23/21 (0.083 %) solution for nebulization albuterol sulfate 90 mcg/actuation inhalation 11/23/21 aerosol inhaler atorvastatin 40 mg tablet mg 11/23/21 empagliflozin 10 mg tablet mg 11/23/21 (Jardiance) fluoxetine 20 mg capsule mg 11/23/21 fluticasone fur. 100 mcg-umeclid inhalation 11/23/21 62.5 mcg-vilant 25 mcg inhalat.powder (Trelegy Ellipta) furosemide 20 mg tablet mg 11/23/21 furosemide 40 mg tablet mg 11/23/21 losartan 25 mg tablet mg 11/23/21 nitroglycerin 0.4 mg sublingual mg 11/23/21 tablet tramadol 50 mg tablet mg 11/23/21 Previous Rx's Medication Instructions Recorded calcitonin (salmon) 200 1 spray intranasal (ALT) DAILY 04/16/23 unit/actuation nasal spray #3.7 mL oxycodone-acetaminophen 5 mg-325 1 tab PO Q8H PRN pain #20 tabs 04/16/23 mg tablet (Percocet) Allergies Allergy/AdvReac Type Severity Reaction Status Date / Time Penicillins Allergy Verified 04/16/23 13:16 Review of Systems Status of ROS: Reports: 6 or more systems reviewed and unremarkable except as noted in History and below PFSH PFSH Social History Smoking Status: Current every day smoker What tobacco products do you use: cigarettes How often do you have a drink containing alcohol: 2-4 times a month How many standard drinks containing alcohol do you have on a typical day: 1 or 2 AUDIT-C Alcohol total score: 2 Non-prescribed substance use: denies use and marijuana (any form) Exam Narrative: Exam Narrative: Objective: Patient's O2 sat is 80% on 4 L nasal cannula He is afebrile Alert orient x3 noncyanotic In general the patient is a cachectic male does appear in marked distress presently He has got a no facial asymmetry, neck is supple His upper thoracic spine shows a kyphotic upper spine. No palpable back tenderness Lungs are clear diminished air exchange Pulse regular Extremities are no edema neurologic nonfocal Const: Vital Signs, click to edit/add: Vital Signs - 24 hr 04/16/23 11:05 04/16/23 11:12 04/16/23 11:13 Temperature 97.9 F Pulse Rate 86 84 Pulse Rate [Pulse Oximeter] 95 Respiratory Rate 26 H Blood Pressure 105/69 Blood Pressure [Ri ght Upper Arm] 105/69 Pulse Oximetry 88 89 87 L Oxygen Delivery Me thod Nasal Cannula Fraction of Inspir ed Oxygen 4 04/16/23 11:15 04/16/23 11:30 04/16/23 11:46 Temperature Pulse Rate 82 77 79 Pulse Rate [Pulse Oximeter] Respiratory Rate Blood Pressure Blood Pressure [Ri ght Upper Arm] Pulse Oximetry 84 L 85 L 85 L Oxygen Delivery Me thod Fraction of Inspir ed Oxygen 04/16/23 12:00 04/16/23 12:15 04/16/23 12:27 Temperature Pulse Rate 81 74 81 Pulse Rate [Pulse Oximeter] Respiratory Rate Blood Pressure 104/74 Blood Pressure [Ri ght Upper Arm] Pulse Oximetry 87 L 87 L 89 Oxygen Delivery Me thod Fraction of Inspir ed Oxygen 04/16/23 12:30 04/16/23 12:53 04/16/23 13:00 Temperature Pulse Rate 79 84 83 Pulse Rate [Pulse Oximeter] Respiratory Rate Blood Pressure Blood Pressure [Ri ght Upper Arm] Pulse Oximetry 91 80 L 80 L Oxygen Delivery Me thod Fraction of Inspir ed Oxygen 04/16/23 13:30 04/16/23 14:00 Temperature Pulse Rate 72 71 Pulse Rate [Pulse Oximeter] Respiratory Rate Blood Pressure Blood Pressure [Ri ght Upper Arm] Pulse Oximetry 84 L 92 Oxygen Delivery Me thod Fraction of Inspir ed Oxygen Course Vital Signs Vital signs: Initial Vital Signs Temperature 97.9 F 04/16/23 11:05 Temperature Source Temporal Artery Scan 04/16/23 11:05 Pulse Rate 95 04/16/23 11:05 Pulse Rhythm Regular 04/16/23 11:05 Respiratory Rate 26 H 04/16/23 11:05 Blood Pressure 105/69 04/16/23 11:05 Blood Pressure Mean 81 04/16/23 11:05 Blood Pressure Position Sitting 04/16/23 11:05 Pulse Oximetry 88 04/16/23 11:05 Oxygen Delivery Method Nasal Cannula 04/16/23 11:05 Fraction of Inspired Oxygen 4 04/16/23 11:05 Vital Signs Temperature 97.9 F 04/16/23 11:05 Pulse Rate 95 04/16/23 11:05 Respiratory Rate 26 H 04/16/23 11:05 Blood Pressure 105/69 04/16/23 11:05 Pulse Oximetry 88 04/16/23 11:05 Oxygen Delivery Method Nasal Cannula 04/16/23 11:05 Fraction of Inspired Oxygen 4 04/16/23 11:05 Temperature 97.9 F 04/16/23 11:05 Pulse Rate 71 04/16/23 14:00 Respiratory Rate 26 H 04/16/23 11:05 Blood Pressure 104/74 04/16/23 12:27 Pulse Oximetry 92 04/16/23 14:00 Oxygen Delivery Method Nasal Cannula 04/16/23 11:05 Fraction of Inspired Oxygen 4 04/16/23 11:05 Medications Administered Medications: Discontinued Medications Generic Name Dose Route Start Last Admin Trade Name Freq PRN Reason Stop Dose Admin Morphine Sulfate 5 mg 04/16/23 11:24 04/16/23 11:37 Morphine 10 Mg/Ml Inj IM 04/16/23 11:25 5 mg ONCE ONE Administration Medical Decision Making [facility] Narrative Medical decision making narrative: 78-year-old white male with oxygen dependence significance severe COPD, with a history of cervical compression fractures presents with thoracic back pain. He reports that the pain is been pretty steady over the week. He has a history of heart disease as well as a COPD. He also has history of ascending aortic aneurysm by chart report. I think at this point doing a thoracic CT scan as well as a chest CT with IV contrast to look at his aneurysm would be appropriate. Will give him morphine 5 mg IM. He certainly could try some strong her narcotic medicine at home if he would be deemed to have a compression fracture. CT should help with that. Lab studies as well. Disposition pending his clinical status. His daughter is able to stay with him is with him most of the time. Addendum to p.m. patient has no findings on his abdominal aorta order or a ascending aorta it still is about the same in terms of dilatation 3.8 cm he has got severe pulmonary emphysema he has got an un healed or healing sternal vertebral body and rib fractures there is no new fracture seen on his chest. Patient has severe T5-6 moderate T8 severe to moderate L3 compression fractures. These do not appear new. The T8 compression fracture is new. At this point I am going to give him nasal calcitonin to use for pain control, as well as Percocet orally for pain control. He feels better with the morphine he had was administered. Would recommend consideration of bone building medications such is Fosamax or other med may need a DEXA scan would be not unreasonable. The patient should follow up with his primary care doctor for that. Return to ED problems or concerns Lab Data Labs: Lab Results 04/16/23 Range/Units 11:39 WBC 8.44 (4.50-11.00) K/uL RBC 4.73 (4.30-5.90) m/uL Hgb 14.7 (13.5-17.5) gm/dL Hct 45.9 (37.0-53.0) % MCV 97 (80-100) fL MCH 31 (26-34) pg MCHC 32 (32-36) gm/dL RDW Coeff of [place] 13.9 (11.5-15.5) % Plt Count 183 (140-440) K/uL Neut % (Auto) 84.0 H (42.0-72.0) % Lymph % (Auto) 10.0 L (20-44) % [place] % (Auto) 6.0 (0.0-11.0) % Eos % (Auto) 0.0 (0.0-7.0) % Baso % (Auto) 0.0 (0.0-3.0) % Neut # (Auto) 7.10 H (1.7-7.0) K/uL Lymph # (Auto) 0.80 L (0.90-2.90) K/uL [place] # (Auto) 0.50 (0.00-0.90) K/UL Eos # (Auto) 0.00 (0.00-0.50) K/uL Baso # (Auto) 0.00 (0.00-0.30) K/uL Abs Immat Gran (auto) 0.00 (0.00-0.30) K/uL Imm/Tot Granulo (auto) 0.0 % Diff Slide Review Acceptable Review (Acceptable) INR 0.81 L (0.91-1.10) Sodium 136 (135-149) mmol/L Potassium 4.1 (3.6-5.1) mmol/L Chloride 88 L (96-114) mmol/L Carbon Dioxide 36 H (20-32) mmol/L Anion Gap 12 (7-15) mEq/L BUN 54 H (7-30) mg/dL Creatinine 1.0 (0.5-1.5) mg/dL Estimated Creat Clear 61.08 Estimated GFR 78 ml/min Glucose 136 H (60-115) mg/dL Calcium 9.4 (8.4-10.6) mg/dL C-Reactive Protein 0.8 (0.5-1.0) mg/dL Discharge Plan Discharge Clinical Impression: Acute thoracic back pain, Closed wedge compression fracture of T8 vertebra Patient Disposition: Home w/ Parent or Adult Condition: Improved Additional Instructions: Light activity, pain medicine as needed cautioned about sedative affect, follow-up with your primary care doctor to reassess her bone and spine situation in the next few days. Nasal calcitonin 1 spray to nostril daily and then alternate nostrils daily. May use the Percocet as needed but again be cautious of sedative affect. To use any other narcotics while using the Percocet. Activity Level: Light activity Discharge Diet: Regular Prescriptions: New calcitonin (salmon) 200 unit/actuation spray,non-aerosol 1 spray intranasal (ALT) DAILY Qty: 3.7 2RF oxycodone-acetaminophen [Percocet] 5-325 mg tablet 1 tab PO Q8H PRN (Reason: pain) Qty: 20 0RF No Action atorvastatin 40 mg tablet albuterol sulfate 2.5 mg /3 mL (0.083 %) solution for nebulization furosemide 20 mg tablet albuterol sulfate 90 mcg/actuation HFA aerosol inhaler INHALATION fluoxetine 20 mg capsule Jardiance 10 mg tablet Trelegy Ellipta 100-62.5-25 mcg blister with device INHALATION furosemide 40 mg tablet losartan 25 mg tablet nitroglycerin 0.4 mg tablet, sublingual tramadol 50 mg tablet Follow Up/Referrals: Maribeth Avalos DO [Primary Care Provider] - Stand Alone Forms: [facility] Info Instructions
[2023-04-16] MEDS: MORPHINE 10 MG/ML inj 5 MG IM (11:37)
[2023-04-16 11:58] LABS: Hematocrit 45.9 % (37.0-53.0); Hemoglobin* 14.7 gm/dL (13.5-17.5); Mean Corpuscular HGB Conc 32 gm/dL (32-36); Mean Corpuscular Hemoglobin 31 pg (26-34); Mean Corpuscular Volume 97 fL (80-100); Platelet Count* 183 K/uL (140-440); RDW Coefficient of Variation % 13.9 % (11.5-15.5); Red Blood Count 4.73 m/uL (4.30-5.90); White Blood Count* 8.44 K/uL (4.50-11.00)
[2023-04-16 12:08] LABS: Chloride* 88 mmol/L (96-114); Potassium* 4.1 mmol/L (3.6-5.1); Sodium* 136 mmol/L (135-149)
[2023-04-16 12:11] LABS: Blood Urea Nitrogen* 54 mg/dL (7-30); Est. Creatinine Clearance* 61.08; Estimated Glomerular Filt Rate 78 ml/min
[2023-04-16 12:12] LABS: Calcium* 9.4 mg/dL (8.4-10.6); Glucose* 136 mg/dL (60-115); INR 0.81 (0.91-1.10); Prothrombin Time 11.6 Seconds
[2023-04-16 12:15] LABS: C Reactive Protein* 0.8 mg/dL (0.5-1.0)
[2023-04-16 12:19] LABS: Slide Review Acceptable Review (Acceptable); Slide Review Reflex Yes
[2023-04-16 12:21] LABS: Anion Gap 12 mEq/L (7-15); Carbon Dioxide* 36 mmol/L (20-32)
== END 2023-04-16 14:27 | disposition home or self-care (01) ==
PROVIDERS: Emergency Provider Family Medicine; PCP Family Medicine
DX: S22.060A Wedge compression fracture of T7-T8 vertebra, initial encounter for closed fracture (principal); M54.6 Pain in thoracic spine
CPT/HCPCS: 36415; 71260; 72128; 80048; 85025; 85610; 86140; 93005; 94761; 96372; 99284; 99285; J2270; Q9967